=== PATIENT | female | born 1940 | race Caucasian/White ===

== ENCOUNTER → 2017-10-11 | Outpatient (CLI) | payer MEDICARE ==
[~2017-10-11] MED LIST: SIMV-49 PO
--- NOTE | 2017-10-11 11:48 | RADIOLOGY IMAGING REPORT ---
FACILITY: [facility] - [place] PATIENT NAME: Valencia Stanley : 1940 MR: [id number] V: [id number] EXAM DATE: ORDERING PHYSICIAN: MARGIE CHOU TECHNOLOGIST: Location: [facility] - [place], [place] Patient: Valencia Stanley : 1940 Visit/Account:[id number] Date of Sevice: 10/11/2017 THYROID HISTORY: Thyroid feels hard, pain when looking down COMPARISON: None. FINDINGS: SIZE: Normal. Right lobe: 4 x 1.1 x 1.2 cm Left lobe: 4.1 x 1.1 x 1 cm Isthmus: 2 mm PARENCHYMA: Homogeneous. NODULES: Right lobe: * There is a small 2.5 mm coarse calcification in the mid right lobe. There are several tiny cysts also noted in the right lobe Left lobe: * There is a 3.3 mm cyst in the mid left lobe containing coarse calcination within the wall Isthmus: * None discrete. VASCULARITY: Within normal limits. ADDITIONAL FINDINGS: None. IMPRESSION: There are small cysts seen in both lobes of thyroid gland. The 3 mm cyst in the mid left lobe contai ns coarse calcination within the wall. Also noted is a small coarse calcification measuring 2.5 mm i n the mid right lobe REFERENCE: 2015 [place] [employer] Management Guidelines for Adult Patients with Thyroid Nodules and D ifferentiated Thyroid Cancer: The [place] [employer] Guidelines Task Force on Thyroid Nodul es and Differentiated Thyroid Cancer. SONOGRAPHIC PATTERNS: * Benign: Purely cystic nodules (no solid component); estimated risk of malignancy <1 percent; no bi opsy recommended. * Very Low Suspicion: Spongiform or partially cystic nodules without any of the sonographic features described in low, intermediate, or high suspicion patterns; estimated risk of malignancy <3 percent; consider FNA at > 2 cm (Observation without FNA is also a reasonable option). * Low Suspicion: Isoechoic or hyperechoic solid nodule, or partially cystic nodule with eccentric so lid areas, without microcalcification, irregular margin or ETE (extra-thyroidal extension), or taller than wide shape; estimated risk of malignancy 5-10 percent; recommend FNA at >1.5 cm. * Intermediate Suspicion: Hypoechoic solid nodule with smooth margins without microcalcifications, E TE (extra-thyroidal extension), or taller than wide shape; estimated risk of malignancy 10-20 percent ; recommend FNA at > 1 cm. * High Suspicion: Solid hypoechoic nodule or solid hypoechoic component of a partially cystic nodule with one or more of the following features: irregular margins (infiltrative, microlobulated), microc alcifications, taller than wide shape, rim calcifications with small extrusive soft tissue component, evidence of ETE (extra-thyroidal extension); estimated risk of malignancy >70-90 percent; recommend FNA at > 1 cm. NOTES: * Although a sonographically suspicious subcentimeter thyroid nodule without evidence of extrathyroi slaas extension or sonographically suspicious lymph nodes may be observed with close sonographic follow -up rather than pursuing immediate FNA, patient age and preference may modify decision-making. A > 50% interval increase in nodule volume and/or development of new suspicious sonographic features are felt to be a valid reasons for potential re-aspiration of a nodule previously shown to have benig n FNA cytology. Report Dictated By: Princess Alex MD at 10/11/2017 11:42 AM Report E-Signed By: Princess Alex MD at 10/11/2017 11:44 AM WSN:[id number]
== END ==
LOC: US 01:51
PROVIDERS: ATTEND Nurse Practitioner Family
DX: E04.2 Nontoxic multinodular goiter (principal)
CPT/HCPCS: 76536